=== PATIENT | male | born 1965 | race Caucasian/White ===

== ENCOUNTER 2024-01-02 19:10 | Inpatient (IN) | payer OTHER ==
[2024-01-02 21:33] LABS: BASOPHILS PERCENT AUTO 0.2 % (0.0-1.0); EOSINOPHILS PERCENT AUTO 0.1 % (0.0-6.0); HEMATOCRIT 39.8 % (42.0-52.0); IMMATURE GRAN ABSOLUTE AUTO 0.22 K/mm3 (0.00-0.05); IMMATURE GRAN PERCENT AUTO 1.8 % (0.0-0.4); LYMPHOCYTES ABSOLUTE AUTO 2.4 K/mm3 (1.0-4.8); LYMPHOCYTES PERCENT AUTO 19.8 % (24.0-44.0); MEAN CORPUSCULAR HGB CONC 35.2 g/dl (32.0-36.0); MEAN CORPUSCULAR VOLUME 99.5 fl (83.0-99.0); MONOCYTES ABSOLUTE AUTO 0.7 K/mm3 (0.0-0.8); MONOCYTES PERCENT AUTO 5.9 % (0.0-8.0); NEUTROPHILS ABSOLUTE AUTO 8.9 K/mm3 (1.8-7.7); NEUTROPHILS PERCENT AUTO 72.2 % (41.0-71.0); NRBC ABSOLUTE 0.09 (0.00-0.02); NRBC PERCENT 0.7 % (0.0-0.2); PLATELET COUNT,PLT 77 K/mm3 (150-400)
[2024-01-02 21:48] LABS: INR 1.23
[2024-01-02 21:50] LABS: PTT,PARTIAL THROMBOPLSTIN TIME 29.4 SECONDS (21.7-31.4)
[2024-01-02] MEDS: Ondansetron 4 MG/2 ML SDV IVPUSH ONE (21:59)
[2024-01-02] MEDS: Sodium Chloride 0.9% 250 ML IV ONE (22:00)
[2024-01-02 22:21] LABS: A/G RATIO 0.5 (1-2); ALBUMIN 1.9 g/dl (3.4-5.0); ANION GAP 27.2 (5-15); BILIRUBIN TOTAL 4.7 mg/dL (0.2-1.0); BUN/CREATININE RATIO 18.3 (14-18); CALCIUM 8.7 mg/dL (8.5-10.1); EST CRCL DRUG DOSING (CG) 32.73 mL/min
[2024-01-02 22:26] LABS: POTASSIUM,K 5.2 mEq/L (3.5-5.1)
[2024-01-02 22:27] LABS: BILIRUBIN INDIRECT 1.7; CREATININE 2.3 mg/dL (0.7-1.3)
[2024-01-03] MEDS: Sodium Chloride 0.9% 1,000 ML IV ONE (00:10)
[2024-01-03] MEDS: Morphine 2 MG/ML SYRINGE IVPUSH ONE (02:07)
[2024-01-03] MEDS: Albumin 25% 50 ML ONE (03:05)
[2024-01-03] MEDS: Albumin 25% 12.5 GM in Premix Bag 1 BAG IV SCH (03:05)
[2024-01-03 03:08] LABS: BODY FLUID TYPE PERITONEAL FLUID
[2024-01-03] MEDS: Morphine 2 MG/ML SYRINGE ONE (03:32)
[2024-01-03] MEDS: Lidocaine 1% 10 ML MDV ONE (03:32)
[2024-01-03 03:57] LABS: SITE,BODY FLUID PERITONEAL
[2024-01-03 03:58] LABS: APPEARANCE,BODY FLUID CLOUDY
[2024-01-03 03:59] LABS: WBC BODY FLUID 343 /uL (0-0)
[2024-01-03 04:02] LABS: RBC,BODY FLUID 9000 /uL (0-0)
[2024-01-03 04:04] LABS: MONONUCLEAR, BODY FLUID 89.5 % (0.0-0.0); POLYMORPHONUCLEAR, BODY FLUID 10.5 % (0.0-0.0)
[2024-01-03] MEDS: cefTRIAXone 2 GM in Sodium Chloride 0.9% 100 ML IV ONE (05:03)
[2024-01-03 05:12] LABS: COLOR,BODY FLUID RED; GLUCOSE,BODY FLUID 95 mg/dL
[2024-01-03 05:13] LABS: VOLUME BODY FLUID 15 ML
[2024-01-03 06:08] LABS: LACTIC ACID 12.6 mmol/L (0.4-2.0)
[2024-01-03] MEDS ORDERED: Sodium Chloride 0.9% 10 ML Syringe FLUSH PRN (07:50)
[2024-01-03] MEDS: Furosemide 40 MG/4 ML VIAL IVPUSH ONE (08:15)
[2024-01-03] MEDS: Pantoprazole 40 MG Tab.CR PO SCH (08:15)
[2024-01-03] MEDS: Albuterol 0.083% 2.5 MG/3 ML Neb Soln NEB ONE (08:36)
[2024-01-03] MEDS ORDERED: Furosemide 20 MG Tab PO SCH (09:00)
[2024-01-03] MEDS ORDERED: Sodium Chloride 0.9% 1,000 ML IV SCH ×2 (09:15→12:30)
[2024-01-03] MEDS ORDERED: Albuterol 0.083% 2.5 MG/3 ML Neb Soln NEB PRN (09:16)
[2024-01-03] MEDS ORDERED: Albuterol/Ipratropium 3.0-0.5 MG/3 ML Neb Soln NEB PRN (09:16)
[2024-01-03] MEDS ORDERED: Docusate Sodium 100 MG Cap PO PRN (09:16)
[2024-01-03] MEDS: Sodium Chloride 0.9% 1,000 ML IV SCH (10:18)
[2024-01-03] MEDS: Azithromycin 500 MG in Sodium Chloride 0.9% 250 ML IV SCH (10:19)
[2024-01-03] MEDS: Spironolactone 25 MG Tab PO SCH (10:27)
[2024-01-03] MEDS: Thiamine 100 MG Tab PO SCH (10:27)
[2024-01-03] MEDS: Folic Acid 1 MG Tab PO SCH (10:27)
[2024-01-03] MEDS: Propranolol 10 MG Tab PO SCH (10:48)
[2024-01-03 12:35] LABS: TSH 2.522 uIU/mL (0.358-3.74)
[2024-01-03] MEDS: Insulin Regular, Human 100 Units/ML 3 ML Vial IV ONE (13:20)
[2024-01-03] MEDS: 50% Dextrose in Water 50 ML Syringe IV ONE (13:20)
[2024-01-03] MEDS: Sodium Polystyrene Sulfonate 15 GM/60 ML Susp 60 ML Bot PO ONE (13:20)
[2024-01-03 14:03] LABS: ANION GAP 27.3 (5-15); BUN/CREATININE RATIO 17.5 (14-18); CALCIUM 7.6 mg/dL (8.5-10.1); EST CRCL DRUG DOSING (CG) 26.89 mL/min
[2024-01-03 14:12] LABS: CREATININE 2.8 mg/dL (0.7-1.3); POTASSIUM,K 5.3 mEq/L (3.5-5.1)
[2024-01-03] MEDS: Lactulose Soln 10 GM/15 ML 30 ML UD Cup PO SCH (14:29)
[2024-01-03] MEDS: Heparin Sodium 5,000 Units/ML Vial IVPUSH ONE (15:18)
[2024-01-03] MEDS: Heparin Sodium/D5W 25,000 UNITS/500 ML BAG IV SCH (15:20)
[2024-01-03 20:25] LABS: PROTEIN,BODY FLUID < 2.0 gm/dl
[2024-01-04] MEDS ORDERED: cefTRIAXone 2 GM in Sodium Chloride 0.9% 100 ML IV SCH (06:15)
[2024-01-04] MEDS ORDERED: Furosemide 20 MG Tab PO SCH (09:00)
== END 2024-01-03 16:28 | DRG 371 ==
LOC: JD.ED 19:10 → JD.MS 01-03 06:05 → UNDOADMIN 01-03 06:05 → JD.MS 01-03 08:48
PROVIDERS: ADMIT Student in an Organized Health Care Education/Training Program; ATTEND Student in an Organized Health Care Education/Training Program
PROC: 0W9G3ZZ Drainage of Peritoneal Cavity, Percutaneous Approach (ICD-10-PCS; principal; 2024-01-03)
DX: K65.2 Spontaneous bacterial peritonitis (principal); J18.9 Pneumonia, unspecified organism; E87.1 Hypo-osmolality and hyponatremia; N17.9 Acute kidney failure, unspecified; E87.20 Acidosis, unspecified; E72.20 Disorder of urea cycle metabolism, unspecified; F10.10 Alcohol abuse, uncomplicated; G62.9 Polyneuropathy, unspecified; F17.210 Nicotine dependence, cigarettes, uncomplicated; E87.5 Hyperkalemia; I10 Essential (primary) hypertension; M19.90 Unspecified osteoarthritis, unspecified site; K70.31 Alcoholic cirrhosis of liver with ascites; E86.0 Dehydration; E80.6 Other disorders of bilirubin metabolism; E88.09 Other disorders of plasma-protein metabolism, not elsewhere classified; D69.6 Thrombocytopenia, unspecified; K80.20 Calculus of gallbladder without cholecystitis without obstruction; K63.9 Disease of intestine, unspecified; I95.81 Postprocedural hypotension; L81.9 Disorder of pigmentation, unspecified; K76.82 Hepatic encephalopathy; D69.59 Other secondary thrombocytopenia; I70.209 Unspecified atherosclerosis of native arteries of extremities, unspecified extremity; Z88.8 Allergy status to other drugs, medicaments and biological substances; Z79.899 Other long term (current) drug therapy; Z98.49 Cataract extraction status, unspecified eye
CPT/HCPCS: 36415 ×2; 71045; 74176; 80048; 80076; 80307; 82945; 83605 ×2; 83690; 84132; 84157; 85025; 85610; 85730; 87040 ×2; 87205; 89050; 93005 ×2; 94640; A9270; J0696; J1940; J2270; J2405; J3490; J7030 ×2; P9047 ×2; 82140; 82550; 82947; 84443; 93925; 93925-26; 93971-26-LT; 93971-LT; 94667; 94760; 97161-GP; J0456; J1644; J1815-GY; J7050; J7620-GY